=== PATIENT | male | born 1990 | race African-American/Black ===

== ENCOUNTER → 2018-09-10 | Outpatient (CLI) | payer SELFPAY | LOC: M OUTALCOH 08:27 | PROVIDERS: ATTEND Psychiatry & Neurology Psychiatry | DX: Z03.89 Encounter for observation for other suspected diseases and conditions ruled out (principal) ==

== ENCOUNTER → 2019-11-28 | Outpatient (REF) | payer SELFPAY | LOC: M LAB REF 12:16 | PROVIDERS: ATTEND Physician Assistant Medical | DX: Z03.818 Encounter for observation for suspected exposure to other biological agents ruled out (principal); Z11.59 Encounter for screening for other viral diseases ==